=== PATIENT | male | born 1980 | race African-American/Black ===

== ENCOUNTER 2019-06-11 07:02 | Inpatient (IN) | payer MEDICAID ==
[2019-06-11] VITALS (25 sets, daily range): BP systolic 105–152; BP diastolic 48–96
[~2019-06-11] VITALS: Ht 193 cm; Wt 130.2 kg
[2019-06-11 08:18] LABS: BASOPHILS % 1.1 % (0.0-2.0); EOSINOPHILS % 1.4 % (0.0-5.0); HEMATOCRIT. 41.6 % (42.0-52.0); HEMOGLOBIN. 14.1 g/dL (14.0-18.0); LYMPHOCYTES % 23.7 % (20.0-50.0); MEAN CORPUSCULAR HEMOGLOBIN 30.3 pg (28.0-32.0); MEAN CORPUSCULAR VOLUME 89.2 fL (80.0-94.0); MEAN PLATELET VOLUME 6.7 fl (7.4-10.4); NEUTROPHILS % 61.8 % (40.0-76.0); PLATELET 259 x1000/uL (130-400); RED BLOOD CELL COUNT 4.66 mill/uL (4.7-6.1); RED CELL DISTRIBUTION WIDTH 13.9 % (11.6-14.6)
[2019-06-11 08:25] LABS: CHLORIDE 107 mEq/L (98-107)
[2019-06-11 08:27] LABS: INR 1.1; PARTIAL THROMBOPLASTIN TIME 29.9 sec (23.4-31.0); PROTHROMBIN TIME 10.9 sec (9.6-11.0)
[2019-06-11 08:29] LABS: ETHANOL BLOOD < 10 mg/dL
[2019-06-11] MEDS ORDERED: SODIUM CHLORIDE 0.9% 1,000 ML IV ONE (08:45)
[2019-06-11] MEDS ORDERED: RIVAROXABAN 15 MG TABLET PO STA (08:45)
[2019-06-11] MEDS ORDERED: HEPARIN 25,000 UNITS PREMIX 500 ML IV ONE (09:45)
[2019-06-11] MEDS ORDERED: HEPARIN 5000 UNITS/ML VIAL IV ONE (09:45)
[2019-06-11] MEDS ORDERED: HEPARIN BOLUS PRN aPTT <36 IV ×2 (10:00)
[2019-06-11] MEDS ORDERED: HEPARIN 80 UNITS/KG BOLUS IV NR (10:00)
[2019-06-11] MEDS ORDERED: HEPARIN BOLUS PRN aPTT 37-44 IV ×2 (10:00)
[2019-06-11] MEDS ORDERED: IPRATROPIUM/ALBUTEROL 0.5-3(2.5)MG/3ML NEB HHN PRN (11:15)
[2019-06-11] MEDS ORDERED: IOHEXOL-350 100 ML BOTTLE ONE (11:24)
[2019-06-11] MEDS ORDERED: GUAIFENESIN-DM 200MG-20MG/10ML UDC PO PRN (11:30)
[2019-06-11] MEDS ORDERED: HEPARIN 25,000 UNITS PREMIX 500 ML IV PRN (12:30)
[2019-06-11] MEDS ORDERED: XAR15 MT (12:39)
[2019-06-11] MEDS: HEPARIN 25,000 UNITS PREMIX 500 ML IV SCH (13:04)
[2019-06-11] MEDS ORDERED: BENZ-16 MT (13:16)
[2019-06-11] MEDS ORDERED: CODE10LI MT (13:16)
[2019-06-11] MEDS: BENZONATATE 100MG CAPSULE PO SCH ×2 (14:14→21:50)
[2019-06-11] MEDS ORDERED: CLONIDINE 0.1MG TABLET PO PRN (17:45)
[2019-06-12] VITALS (21 sets, daily range): BP systolic 109–155; BP diastolic 50–86
[2019-06-12] MEDS: HEPARIN 25,000 UNITS PREMIX 500 ML IV SCH (00:57)
[2019-06-12 06:35] LABS: BASOPHILS % 0.2 % (0.0-2.0); EOSINOPHILS % 1.7 % (0.0-5.0); HEMATOCRIT. 41.4 % (42.0-52.0); HEMOGLOBIN. 14.3 g/dL (14.0-18.0); LYMPHOCYTES % 34.6 % (20.0-50.0); MEAN CORPUSCULAR HEMOGLOBIN 30.8 pg (28.0-32.0); MEAN PLATELET VOLUME 7.2 fl (7.4-10.4); MONOCYTES % 10.3 % (2.0-8.0); NEUTROPHILS % 53.2 % (40.0-76.0); PLATELET 267 x1000/uL (130-400); RED BLOOD CELL COUNT 4.66 mill/uL (4.7-6.1); RED CELL DISTRIBUTION WIDTH 14.1 % (11.6-14.6)
[2019-06-12] MEDS: BENZONATATE 100MG CAPSULE PO SCH ×2 (06:40→13:19)
[2019-06-12 06:44] LABS: CHLORIDE 105 mEq/L (98-107)
[2019-06-12] MEDS ORDERED: AMLODIPINE 2.5MG TABLET PO SCH (09:00)
== END 2019-06-12 13:35 | disposition home or self-care (01) | DRG 197 ==
LOC: ER 07:02 → CVICU 09:43 → EDBEDREQ 09:46 → EDBEDREQSVC 09:46 → ENRESERV 11:23
PROVIDERS: ADMIT Internal Medicine; ATTEND Internal Medicine
DX: I82.433 Acute embolism and thrombosis of popliteal vein, bilateral (principal); J96.01 Acute respiratory failure with hypoxia; I26.99 Other pulmonary embolism without acute cor pulmonale; E66.9 Obesity, unspecified; R04.2 Hemoptysis; I50.30 Unspecified diastolic (congestive) heart failure; I11.0 Hypertensive heart disease with heart failure; I82.413 Acute embolism and thrombosis of femoral vein, bilateral; F17.210 Nicotine dependence, cigarettes, uncomplicated; Z82.3 Family history of stroke; Z82.49 Family history of ischemic heart disease and other diseases of the circulatory system; Z86.718 Personal history of other venous thrombosis and embolism; Z86.711 Personal history of pulmonary embolism; Z79.01 Long term (current) use of anticoagulants; Z68.34 Body mass index [BMI] 34.0-34.9, adult
CPT/HCPCS: 36415; 71045; 71275; 80048; 80053; 80320; 83880; 84484; 85025; 93005; 93306; 93970; 99291; J1644; J7030; Q9967; G0480